=== PATIENT | female | born 1965 | race Caucasian/White ===

== ENCOUNTER 2017-05-29 17:19 | Emergency (ER) | payer BC, MEDICARE ==
[~2017-05-29] VITALS: Ht 170.2 cm; Wt 93.0 kg
[~2017-05-29 17:19] MED LIST: CLON-527 PO; FLUO20CA39 PO; HYDR-569 PO; PRAZ2CAP2 PO; ZIPR80CA10 PO
[2017-05-29] MEDS ORDERED: morphine 5 MG/ML injection IV ONE (17:45)
[2017-05-29] MEDS ORDERED: ondansetron/PF 4mg/2ml inj IV ONE (17:45)
[2017-05-29] MEDS ORDERED: normal saline 1000ml 1,000 ML IV SCH (17:45)
[2017-05-29] MEDS ORDERED: MIDAZolam 5mg/ml 2ml vial IV ONE (19:55)
[2017-05-29] MEDS ORDERED: propofol 10mg/ml 20ml vial IV ONE (19:55)
[2017-05-29] MEDS ORDERED: propofol 1000mg/100ml bottle 100 ML IV ONE (20:10)
[2017-05-29 21:48] VITALS: BP 159/88
== END 2017-05-29 21:52 | disposition home or self-care (01) ==
LOC: ER 17:20
DX: S73.005A Unspecified dislocation of left hip, initial encounter (principal); G89.29 Other chronic pain; M19.90 Unspecified osteoarthritis, unspecified site; F41.9 Anxiety disorder, unspecified; F32.9 Major depressive disorder, single episode, unspecified; F20.9 Schizophrenia, unspecified; E11.9 Type 2 diabetes mellitus without complications; Z88.0 Allergy status to penicillin; Z88.5 Allergy status to narcotic agent; Z88.8 Allergy status to other drugs, medicaments and biological substances; Z96.641 Presence of right artificial hip joint; X58.XXXA Exposure to other specified factors, initial encounter; Y93.89 Activity, other specified; Y92.89 Other specified places as the place of occurrence of the external cause; Y99.8 Other external cause status
CPT/HCPCS: 27250; 72170; 73502; 96361; 96374; 96375; 96376; 99285; J2250; J2270; J2405; J2704; J7030; A4620

== ENCOUNTER 2017-12-20 18:15 | Emergency (ER) | payer MEDICARE, MEDICAID ==
[~2017-12-20] VITALS: Ht 167.6 cm; Wt 99.8 kg
[2017-12-20 18:36] VITALS: BP 195/111
[2017-12-20] MEDS ORDERED: CLON0.5T23 PO (19:31)
[2017-12-20] MEDS ORDERED: LAMO100T89 PO (19:31)
== END 2017-12-20 19:38 | disposition home or self-care (01) ==
LOC: ER 18:16
DX: F41.9 Anxiety disorder, unspecified (principal); F20.9 Schizophrenia, unspecified; F31.9 Bipolar disorder, unspecified; E11.9 Type 2 diabetes mellitus without complications; G89.29 Other chronic pain; M19.90 Unspecified osteoarthritis, unspecified site; Z76.0 Encounter for issue of repeat prescription; Z98.890 Other specified postprocedural states; Z88.0 Allergy status to penicillin; Z79.899 Other long term (current) drug therapy
CPT/HCPCS: 99284

== ENCOUNTER 2017-12-31 11:42 | Emergency (ER) | payer MEDICARE, MEDICAID ==
[~2017-12-31] VITALS: Ht 167.6 cm; Wt 90.0 kg
[~2017-12-31 11:42] MED LIST changes: +CLON0.5T23 PO; +LAMO100T89 PO
[2017-12-31 12:23] VITALS: BP 125/73
[2017-12-31] MEDS ORDERED: IBUP-1984 PO (12:42)
== END 2017-12-31 13:04 | disposition home or self-care (01) ==
LOC: ER 11:42
DX: M79.605 Pain in left leg (principal); R60.0 Localized edema; M25.561 Pain in right knee; M19.90 Unspecified osteoarthritis, unspecified site; E11.42 Type 2 diabetes mellitus with diabetic polyneuropathy; G89.29 Other chronic pain; F17.210 Nicotine dependence, cigarettes, uncomplicated; Z98.890 Other specified postprocedural states; Z88.0 Allergy status to penicillin; Z79.899 Other long term (current) drug therapy; Z96.643 Presence of artificial hip joint, bilateral
CPT/HCPCS: 93971; 99284

== ENCOUNTER 2018-08-27 16:03 | Observation (INO) | payer MEDICARE, MEDICAID ==
[~2018-08-27] VITALS: Ht 167.6 cm; Wt 79.5 kg
[~2018-08-27 16:03] MED LIST changes: +HYDR-4383 PO; -HYDR-569 PO
[2018-08-27] MEDS ORDERED: aspirin 325mg tablet PO ONE (16:30)
[2018-08-27 16:59] LABS: BASOPHILS # (AUTO) 0.1 X10'3 (0-0.2); EOSINOPHILS # (AUTO) 0.1 X10'3 (0-0.9); EOSINOPHILS % (AUTO) 1.3 % (0-6); HEMOGLOBIN 15.3 g/dl (12.0-16.0); LYMPHOCYTES # (AUTO) 1.4 X10'3 (1.1-4.8); LYMPHOCYTES % (AUTO) 19.5 % (21-51); MEAN CORPUSCULAR HEMOGLOBIN 34.6 PG (27.0-31.0); MEAN CORPUSCULAR HGB CONC 33.9 g/dL (33.0-36.5); MEAN CORPUSCULAR VOLUME 102.1 FL (78-98); MEAN PLATELET VOLUME 7.6 FL (7.4-10.4); MONOCYTES # (AUTO) 0.4 X10'3 (0-0.9); MONOCYTES % (AUTO) 5.8 % (2-12); NEUTROPHILS # (AUTO) 5.2 X10'3 (1.8-7.7); NEUTROPHILS % (AUTO) 72.4 % (42-75); PLATELET COUNT 241 X10'3 (140-440); RED BLOOD COUNT 4.41 X10'6 (4.20-5.60); WHITE BLOOD COUNT 7.2 X10'3 (4.5-11.0)
[2018-08-27 17:13] LABS: PARTIAL THROMBOPLASTIN TIME 27 SECONDS (22-32)
[2018-08-27 17:21] LABS: ALANINE AMINOTRANSFERASE 49 U/L (12-78); ALBUMIN 3.6 G/DL (3.4-5.0); ALBUMIN/GLOBULIN RATIO 1.2 (1.1-1.5); ALKALINE PHOSPHATASE 101 IU/L (46-116); ANION GAP 9 (8-16); ASPARTATE AMINO TRANSFERASE 21 U/L (10-37); BILIRUBIN,TOTAL 0.4 MG/DL (0.1-1.0); BLOOD UREA NITROGEN 14 MG/DL (7-18); BUN/CREATININE RATIO 14.9 (6.6-38.0); CALCIUM 9.6 MG/DL (8.5-10.1); CHLORIDE 103 MMOL/L (99-107); CREATININE 0.94 MG/DL (0.40-0.90); GLUCOSE 174 MG/DL (70-104); POTASSIUM 3.8 MMOL/L (3.5-5.1); SODIUM 138 MMOL/L (135-145); TOTAL CARBON DIOXIDE 26.5 MMOL/L (24-32); TOTAL PROTEIN 6.5 G/DL (6.4-8.2); eGFR 62 ML/MIN
[2018-08-27] MEDS ORDERED: morphine 4 MG/ML inj SYRINge IM ONE (17:50)
[2018-08-27] MEDS ORDERED: ondansetron 4mg rapidly disintigrating tab PO ONE (17:50)
[2018-08-27] MEDS ORDERED: GABA-530 PO (18:23)
[2018-08-27] MEDS ORDERED: METF-950 PO (18:23)
[2018-08-27] MEDS ORDERED: LISI-600 PO (18:23)
[2018-08-27] MEDS ORDERED: ATOR10TA70 PO (18:23)
[2018-08-27] MEDS ORDERED: LAMO200T31 PO (18:23)
[2018-08-27] MEDS ORDERED: IBUP-1984 PO (18:23)
--- NOTE | 2018-08-27 18:33 | NUR ---
PT GIVING US PERMISSION TO TALK TO HER SISTER ABOUT HER CASE.
--- NOTE | 2018-08-27 18:34 | NUR ---
PT REQUESTING TO BE A LIMITED CODE, SHE EXPRESSED TO ME THAT SHE IS WILLING TO HAVE CPR BUT DOES NOT WANT TO BE ON A VENTILATOR. SHE ALSO STATED SHE IS WILLING TO RECEIVE BLOOD.
--- NOTE | 2018-08-27 18:42 | NUR ---
PT REPORTS BEING PAIN FREE, SHE WAS GIVEN SOME WATER AND ONLY NEEDS A SNACK FOR HER HS PSYCH MEDICATIONS WHEN THEY ARE DUE.
[2018-08-27] MEDS ORDERED: acetaminophen 325mg tablet PO PRN (19:25)
[2018-08-27] MEDS ORDERED: morphine 2 MG/ML inj. syringe IV PRN ×2 (19:25)
[2018-08-27] MEDS ORDERED: mag hydrox/Alum hydrox/simeth 30ml oral suspension PO PRN (19:25)
[2018-08-27] MEDS ORDERED: HYDROcodone/acetaminophen 5mg/325mg tablet PO PRN (19:25)
[2018-08-27] MEDS ORDERED: nitroGLYCERIN 0.4mg SUBLingual tab SL PRN ×2 (19:25→23:50)
[2018-08-27] MEDS ORDERED: ondansetron/PF 4mg/2ml inj IV PRN (19:25)
[2018-08-27] MEDS ORDERED: magnesium hydroxide 30ml (MOM) UD suspension PO PRN (19:25)
--- NOTE | 2018-08-27 20:22 | NUR ---
REPORT CALLED TO MARGARITA WORKMAN , PATIENT CASE DISCUSSED, I INFORMED MARGARITA OF THE PATIENTS REQUEST TO NOT BE ON A VENTILATOR IN THE CASE THAT LIFE SAVING MEASURES NEED TO BE PERFORMED, SHE AWKNOWLEDGED AND WILL TALK TO HOSPITALIST WHEN AVAILIBLE TO CHANGE CODE STATUS IF APPROPRIATE. PT BELONGINGS WENT TO THE ROOM WITH THE PATIENT. PT TRANSPORTED TO THE FLOOR BY HARRIS WORKMAN.
[2018-08-27 20:30] VITALS: BP 149/91
[2018-08-27] MEDS ORDERED: ziprasidone 20mg capsule PO SCH (21:00)
[2018-08-27] MEDS ORDERED: prazosin 1mg capsule PO SCH (21:00)
[2018-08-27] MEDS ORDERED: temazepam 15mg capsule PO PRN (21:00)
[2018-08-27] MEDS: clonazePAM 0.5mg tablet PO SCH (21:18)
[2018-08-27] MEDS: metFORMIN 500mg tablet PO SCH (22:12)
[2018-08-27 22:32] LABS: HEMOGLOBIN A1C 6.5 % (4.5-6.2)
[2018-08-27 23:22] VITALS: BP 136/84
[2018-08-27] MEDS ORDERED: metoprolol tartrate 1mg/ml inj IV PRN (23:50)
[2018-08-27] MEDS ORDERED: ibuprofen 200mg tablet PO PRN (23:50)
[2018-08-27] MEDS ORDERED: aminophylline 250mg/10ml inj. IV PRN (23:50)
[2018-08-27] MEDS ORDERED: regadenoson 0.4mg/5ml syringe IV PRN (23:50)
[2018-08-28] VITALS (12 sets, daily range): BP systolic 98–134; BP diastolic 56–74
[2018-08-28 05:40] LABS: CHOL/HDL RATIO 2.3 (0.00-4.99); CHOLESTEROL 124 MG/DL (0-200); HDL CHOLESTEROL 55 MG/DL (35-60); LDL CHOLESTEROL 55 MG/DL (50-100); TRIGLYCERIDES 135 MG/DL (20-135)
--- NOTE | 2018-08-28 06:20 | NUR ---
Patient in room [facility]. I have received report from Teresa Estrella and had the opportunity to ask questions and assume patient care.
--- NOTE | 2018-08-28 06:20 | NUR ---
Patient in room [facility]. I have received report from Teresa WORKMAN and had the opportunity to ask questions and assume patient care.
--- NOTE | 2018-08-28 06:30 | NUR ---
Problems reprioritized. Patient report given, questions answered & plan of care reviewed with JACINTA Gallegos. Addendum: 08/28/18 at 0630 by Teresa De La Torre RN Amended: Links added.
[2018-08-28] MEDS: clonazePAM 0.5mg tablet PO SCH (07:34)
[2018-08-28] MEDS: ibuprofen tablet 400 MG TABLET PO SCH ×2 (07:35)
[2018-08-28] MEDS: gabapentin 100mg capsule PO SCH ×3 (07:38→17:21)
[2018-08-28] MEDS: metFORMIN 500mg tablet PO SCH ×2 (07:38→12:29)
--- NOTE | 2018-08-28 07:58 | NUR ---
Mar Scan injection completed. Addendum: 08/28/18 at 0759 by Rosy Fontanez RN Amended: Links added.
[2018-08-28] MEDS ORDERED: lamoTRIgine 100mg tablet PO SCH (08:00)
[2018-08-28] MEDS ORDERED: aspirin 81mg tablet.DR PO SCH (08:00)
[2018-08-28] MEDS ORDERED: lisinopril 10 MG tablet PO SCH (08:00)
[2018-08-28] MEDS ORDERED: FLUoxetine 20mg capsule PO SCH (08:00)
[2018-08-28] MEDS ORDERED: metFORMIN 500mg tablet PO SCH (08:00)
[2018-08-28] MEDS ORDERED: atorvastatin 10mg tablet PO SCH ×2 (08:00→21:00)
--- NOTE | 2018-08-28 08:25 | NUR ---
Holding BP meds until after Mar Scan completed.
--- NOTE | 2018-08-28 09:12 | NUR ---
Patient going off the floor for her lexiscan
[2018-08-28] MEDS ORDERED: regadenoson 0.4mg/5ml syringe IV ONE (09:25)
[2018-08-28] MEDS ORDERED: aminophylline inj. 10 ML IV ONE (09:25)
--- NOTE | 2018-08-28 10:38 | NUR ---
Patient back on unit from [facility]
[2018-08-28] MEDS ORDERED: clonazePAM 0.5mg tablet PO PRN (10:45)
[2018-08-28] MEDS ORDERED: ibuprofen tablet 400 MG TABLET PO PRN (10:45)
[2018-08-28] MEDS ORDERED: MESSAGE TO NURSING PO SCH (13:00)
[2018-08-28] MEDS ORDERED: iohexol 350MG/ML 100ml bottle IV ONE (16:23)
--- NOTE | 2018-08-28 16:57 | NUR ---
Patient off the unit to [facility]
--- NOTE | 2018-08-28 17:00 | NUR ---
Patient back from [facility]
--- NOTE | 2018-08-28 18:08 | NUR ---
Late entry, charted following not on wrong patient. Patient was completed with discharge at 1808. Discharged on nursing staff end. 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
--- NOTE | 2018-08-28 18:28 | NUR ---
Pt. discharged to home. All belongings taken. Pt. walked and accompanied by process description writer to lobby. Pt. states "My dad will be here in a few minutes. Pt. in stable condition.
== END 2018-08-28 18:17 | disposition home or self-care (01) ==
LOC: ER 16:04 → SUR 3N 19:26 → INTOOBSV 19:26 → CMPBEDREQ 20:48
PROVIDERS: ADMIT Internal Medicine; ATTEND Internal Medicine
DX: R07.2 Precordial pain (principal); E78.5 Hyperlipidemia, unspecified; F32.9 Major depressive disorder, single episode, unspecified; F41.9 Anxiety disorder, unspecified; E11.42 Type 2 diabetes mellitus with diabetic polyneuropathy; I25.10 Atherosclerotic heart disease of native coronary artery without angina pectoris; I10 Essential (primary) hypertension; E78.00 Pure hypercholesterolemia, unspecified; G89.29 Other chronic pain; F20.9 Schizophrenia, unspecified; F17.210 Nicotine dependence, cigarettes, uncomplicated; Z90.710 Acquired absence of both cervix and uterus; Z96.643 Presence of artificial hip joint, bilateral
CPT/HCPCS: 36415; 71045; 71275; 78452; 80053; 80061; 82948; 83036; 84484; 85025; 85610; 85730; 87070; 93005; 93017; 96372; 99284; A9500; G0378; J0280; J2270; Q9967; 99285

== ENCOUNTER 2019-02-19 21:28 | Emergency (ER) | payer MEDICARE, MEDICAID ==
[~2019-02-19] VITALS: Ht 167.6 cm; Wt 79.5 kg
[~2019-02-19 21:28] MED LIST changes: +ATOR10TA70 PO; -CLON-527 PO; +GABA-530 PO; -HYDR-4383 PO; +IBUP-1984 PO; -LAMO100T89 PO; +LAMO200T31 PO; +LISI-600 PO; +METF-950 PO
[2019-02-20] MEDS ORDERED: etomidate 2mg/ml inj. IV ONE ×2 (00:05→00:20)
[2019-02-20] MEDS ORDERED: fentaNYL/PF 50MCG/1 ML 2ML syringe IV ONE ×2 (00:05→00:20)
[2019-02-20] MEDS ORDERED: ondansetron/PF 4mg/2ml inj IV ONE (00:05)
[2019-02-20] MEDS ORDERED: MIDAZolam 5mg/ml 2ml vial IV ONE ×2 (00:05→00:20)
[2019-02-20] MEDS ORDERED: HYDR-3965 PO (01:10)
[2019-02-20 01:28] VITALS: BP 104/47
--- NOTE | 2019-02-20 02:57 | NUR ---
pt prepared for discharge. transport wait for to return to pick her up for transport.
== END 2019-02-20 03:03 | disposition home or self-care (01) ==
LOC: ER 21:29
DX: S73.015A Posterior dislocation of left hip, initial encounter (principal); E78.00 Pure hypercholesterolemia, unspecified; I10 Essential (primary) hypertension; E11.9 Type 2 diabetes mellitus without complications; G89.29 Other chronic pain; F41.9 Anxiety disorder, unspecified; F32.9 Major depressive disorder, single episode, unspecified; F20.9 Schizophrenia, unspecified; Z98.890 Other specified postprocedural states; Z88.0 Allergy status to penicillin; Z79.84 Long term (current) use of oral hypoglycemic drugs; Z79.899 Other long term (current) drug therapy; X58.XXXA Exposure to other specified factors, initial encounter; Y93.89 Activity, other specified; Y92.89 Other specified places as the place of occurrence of the external cause; Y99.8 Other external cause status
CPT/HCPCS: 27250; 73502; 94760; 96374; 99152; 99285; J2250; J2405; J3010

== ENCOUNTER 2019-03-28 09:37 | Emergency (ER) | payer MEDICARE, MEDICAID ==
[~2019-03-28] VITALS: Ht 167.6 cm; Wt 87.9 kg
[2019-03-28 09:44] VITALS: BP 129/71
[2019-03-28 10:20] LABS: CLARITY,URINE CLEAR (Clear); COLOR,URINE STRAW (Yellow); GLUCOSE, URINE NEGATIVE (Neg); KETONES,URINE NEGATIVE (Neg); LEUKOCYTE ESTERASE ,URINE NEGATIVE (Neg); NITRITES, URINE NEGATIVE (Neg); OCCULT BLOOD,URINE NEGATIVE (Neg); PROTEIN,URINE NEGATIVE (Neg); UA COLLECTION TYPE CLN CATCH MIDSTREAM; UROBILINOGEN,URINE 0.2 E.U/dL (0.2-1.0)
[2019-03-28] MEDS ORDERED: NITR100C6 PO (10:40)
[2019-03-28] MEDS ORDERED: phenazopyridine 100mg tablet PO ONE (10:45)
[2019-03-28] MEDS ORDERED: acetaminophen 325mg tablet PO ONE (10:45)
== END 2019-03-28 11:05 | disposition home or self-care (01) ==
LOC: ER 09:38
DX: N39.0 Urinary tract infection, site not specified (principal); M54.5 Low back pain; E78.00 Pure hypercholesterolemia, unspecified; I10 Essential (primary) hypertension; E11.9 Type 2 diabetes mellitus without complications; G89.29 Other chronic pain; F41.9 Anxiety disorder, unspecified; F32.9 Major depressive disorder, single episode, unspecified; F20.9 Schizophrenia, unspecified; M19.90 Unspecified osteoarthritis, unspecified site; F17.200 Nicotine dependence, unspecified, uncomplicated; F10.99 Alcohol use, unspecified with unspecified alcohol-induced disorder; Z98.890 Other specified postprocedural states; Z88.0 Allergy status to penicillin; Z79.84 Long term (current) use of oral hypoglycemic drugs; Z79.899 Other long term (current) drug therapy; Y90.9 Presence of alcohol in blood, level not specified
CPT/HCPCS: 81003; 99284

== ENCOUNTER 2019-04-08 05:37 | Emergency (ER) | payer MEDICARE, MEDICAID ==
[~2019-04-08] VITALS: Ht 170.2 cm; Wt 89.0 kg
[~2019-04-08 05:37] MED LIST changes: +NITR100C6 PO
[2019-04-08 06:42] LABS: CLARITY,URINE CLEAR (Clear); COLOR,URINE YELLOW (Yellow); GLUCOSE, URINE NEGATIVE (Neg); KETONES,URINE NEGATIVE (Neg); LEUKOCYTE ESTERASE ,URINE NEGATIVE (Neg); NITRITES, URINE NEGATIVE (Neg); OCCULT BLOOD,URINE NEGATIVE (Neg); PH,URINE 6.5 (4.8-8.0); PROTEIN,URINE NEGATIVE (Neg); UROBILINOGEN,URINE 0.2 E.U/dL (0.2-1.0)
--- NOTE | 2019-04-08 06:45 | NUR ---
PT TO CT
[2019-04-08 06:47] LABS: UA COLLECTION TYPE STRAIGHT CATH
[2019-04-08 06:54] LABS: ALANINE AMINOTRANSFERASE 30 U/L (12-78); ALBUMIN 3.4 G/DL (3.4-5.0); ALBUMIN/GLOBULIN RATIO 1.2 (1.1-1.5); ALKALINE PHOSPHATASE 77 IU/L (46-116); ANION GAP 9 (8-16); BILIRUBIN,TOTAL 0.5 MG/DL (0.1-1.0); BLOOD UREA NITROGEN 7 MG/DL (7-18); BUN/CREATININE RATIO 7.4 (6.6-38.0); CALCIUM 9.3 MG/DL (8.5-10.1); CHLORIDE 106 MMOL/L (99-107); CREATININE 0.94 MG/DL (0.40-0.90); GLUCOSE 109 MG/DL (70-104); LIPASE 68 U/L (73-393); SODIUM 139 MMOL/L (135-145); TOTAL CARBON DIOXIDE 23.8 MMOL/L (24-32); TOTAL PROTEIN 6.3 G/DL (6.4-8.2); eGFR 62 ML/MIN
[2019-04-08 06:56] LABS: BASOPHILS % (AUTO) 0.5 % (0-1); EOSINOPHILS # (AUTO) 0.1 X10'3 (0-0.9); EOSINOPHILS % (AUTO) 1.6 % (0-6); HEMATOCRIT 44.3 % (35.0-45.0); HEMOGLOBIN 14.9 g/dl (12.0-16.0); LYMPHOCYTES # (AUTO) 1.2 X10'3 (1.1-4.8); LYMPHOCYTES % (AUTO) 23.3 % (21-51); MEAN CORPUSCULAR HGB CONC 33.6 g/dL (33.0-36.5); MEAN CORPUSCULAR VOLUME 104.1 FL (78-98); MEAN PLATELET VOLUME 7.7 FL (7.4-10.4); MONOCYTES # (AUTO) 0.3 X10'3 (0-0.9); MONOCYTES % (AUTO) 6.9 % (2-12); NEUTROPHILS # (AUTO) 3.4 X10'3 (1.8-7.7); NEUTROPHILS % (AUTO) 67.7 % (42-75); PLATELET COUNT 220 X10'3 (140-440); RED BLOOD COUNT 4.26 X10'6 (4.20-5.60)
[2019-04-08 06:59] LABS: ASPARTATE AMINO TRANSFERASE 24 U/L (10-37); POTASSIUM 5.3 MMOL/L (3.5-5.1)
[2019-04-08] MEDS ORDERED: ketorolac trometh. 30mg/ml inj. IM ONE (07:25)
[2019-04-08] MEDS ORDERED: acetaminophen 325mg tablet PO ONE (07:25)
[2019-04-08] MEDS ORDERED: bethanechol 10mg tablet PO ONE (08:05)
[2019-04-08] MEDS ORDERED: POLY119P2 PO (08:08)
[2019-04-08] MEDS ORDERED: BISA-155 PO (08:08)
[2019-04-08] MEDS ORDERED: BETH10TA29 PO (08:08)
[2019-04-08 08:36] VITALS: BP 155/89
== END 2019-04-08 08:38 | disposition home or self-care (01) ==
LOC: ER 05:37
DX: R33.9 Retention of urine, unspecified (principal); K59.00 Constipation, unspecified; R10.30 Lower abdominal pain, unspecified; M54.5 Low back pain; E78.00 Pure hypercholesterolemia, unspecified; I10 Essential (primary) hypertension; E11.9 Type 2 diabetes mellitus without complications; G89.29 Other chronic pain; M19.90 Unspecified osteoarthritis, unspecified site; F41.9 Anxiety disorder, unspecified; F32.9 Major depressive disorder, single episode, unspecified; F20.9 Schizophrenia, unspecified; Z88.0 Allergy status to penicillin; Z79.899 Other long term (current) drug therapy; Z98.890 Other specified postprocedural states
CPT/HCPCS: 36415; 74176; 80053; 81003; 83690; 85025; 96372; 99284; J1885

== ENCOUNTER 2024-12-19 13:48 | Outpatient (CLI) | payer MEDICARE, MEDICAID ==
[~2024-12-19 13:48] MED LIST changes: +BETH10TA29 PO; +BUSP15TA3 PO; -CLON0.5T23 PO; +FLUO-1 PO; -FLUO20CA39 PO; +FLUT16SP26 INH; -IBUP-1984 PO; -LISI-600 PO; +LISI20TA28 PO; +METF-1203 PO; -METF-950 PO; -NITR100C6 PO; +ONDA-245 PO; +TAMS-55 PO; +TOPI-95 PO
--- NOTE | 2024-12-19 16:58 | RADIOLOGY REPORT ---
PROCEDURE: MR MRI LUMBAR SPINE INDICATION: LOW BACK PAIN Exam Date: 12/19/2024 01:45 PM COMPARISON: None TECHNIQUE: MRI lumbar spine without intravenous contrast. FINDINGS: Dextroscoliosis. Grade 1 retrolisthesis of L3 on L4. There are degenerative endplate changes includ ing modic endplate changes with anterior and lateral osteophytes throughout the lumbar spine. The vis ualized distal spinal cord and conus medullaris are within normal limits. The conus medullaris appea rs to terminate within normal limits. The visualized retroperitoneal and paraspinal soft tissues are unremarkable. The following axial levels are detailed below: T12-L1: There is a mild circumferential disc bulge. No significant central canal or neuroforaminal s tenosis. L1-L2: There is a severe circumferential disc bulge complicated by facet arthropathy narrowing the central canal to 6 mm with associated moderate to severe right neuroforaminal stenosis. L2-L3: There is a severe circumferential disc bulge complicated by facet arthropathy narrowing the central canal to 7 mm with associated moderate bilateral neuroforaminal stenosis. L3-L4: There is a severe circumferential disc bulge complicated by facet arthropathy narrowing the central canal to 9 mm with associated moderate left neuroforaminal stenosis. L4-L5: There is a moderate circumferential disc bulge complicated by facet arthropathy associated w ith mild to moderate right neuroforaminal stenosis. No significant central canal stenosis. L5-S1: There is a moderate circumferential disc bulge complicated by facet arthropathy associated wi th mild to moderate right neuroforaminal stenosis. No significant central canal stenosis. IMPRESSION: 1. Rotoscoliosis of the lumbar spine with associated multilevel moderate to advanced degenerative dis ease. Severe central canal stenosis L1-2 and L2-3. Mild central canal stenosis L3-Neural foraminal st enosis as above. HS:Y
== END 2024-12-19 23:59 | disposition home or self-care (01) ==
LOC: MRI02 13:48
PROVIDERS: ATTEND Family Medicine
DX: M51.17 Intervertebral disc disorders with radiculopathy, lumbosacral region (principal); M54.50 Low back pain, unspecified; M47.27 Other spondylosis with radiculopathy, lumbosacral region; M48.07 Spinal stenosis, lumbosacral region
CPT/HCPCS: 72148